=== PATIENT | female | born 1995 | race African-American/Black ===

== ENCOUNTER 2022-03-21 13:15 | Emergency (ER) | payer OTHER, SELFPAY ==
[2022-03-21] MEDS ORDERED: Dexamethasone 10 MG/ML VIAL ONE (13:45)
== END 2022-03-21 13:55 | disposition home or self-care (01) ==
LOC: CSHERS 13:15
DX: J02.0 Streptococcal pharyngitis (principal)
CPT/HCPCS: 99283; J1100